=== PATIENT | female | born 1955 | race Caucasian/White ===

== ENCOUNTER 2020-04-01 08:26 | Day surgery (SDC) | payer BC ==
[2020-04-01] MEDS ORDERED: Midazolam 1 MG/ML 2 ML SDV IV ONE (08:27)
[2020-04-01] MEDS ORDERED: Lidocaine 2% 5 ML SDV INJECT ONE (08:27)
[2020-04-01] MEDS ORDERED: Propofol 200 MG/20 ML SDV IV ONE (08:27)
[2020-04-01] MEDS ORDERED: Sodium Chloride 0.9% 10 ML Syringe FLUSH PRN (08:30)
[2020-04-01] MEDS: Lactated Ringers 1,000 ML IV SCH (08:43)
--- NOTE | 2020-04-01 10:43 | PCM.OPNOTE ---
- General Post-Op/Procedure Note Date of Surgery/Procedure: 04/01/20 Operative Procedure(s): egd with bx. \ Findings: gastroduodenitis Pre Op Diagnosis: hx of epigastric abd pain. gastroduodenitis Post-Op Diagnosis: Same Anesthesia Technique: MAC Primary Surgeon: Ravinder Soto Anesthesia Provider: Frida Cantu Pathology: stomach and duodenum Complications: None Condition: Good Free Text/Narrative:: see dictation
[2020-04-01 11:21] VITALS: BP 116/70; PULSE 85
--- NOTE | 2020-04-02 14:21 | OR ---
DATE OF OPERATION: 04/01/2020 SURGEON: Ravinder Soto MD PROCEDURE PERFORMED: Esophagogastroduodenoscopy with cold forceps biopsy. PREOPERATIVE DIAGNOSIS: History of epigastric abdominal pain and gastroduodenitis. POSTOPERATIVE DIAGNOSIS: Gastroduodenitis. INDICATIONS FOR PROCEDURE: This is a 65-year-old white female who, in the past, has had gastroduodenitis, as well as an antral ulcer. These were successfully treated, and she has been on Prilosec since then. Last week, she developed some epigastric abdominal pain, which got progressively worse. She started some Carafate with no improvement, and she was offered and accepted an EGD today to delineate the severity, if any, of her above history. DESCRIPTION OF OPERATION: After an excellent IV sedation was administered, the bite block was inserted. The flexible endoscope was passed without difficulty down the patient's esophagus into the stomach. Stomach was insufflated. Scope passed through the pylorus to the second portion of the duodenum and slowly withdrawn. Following findings were noted. In the first portion of the duodenum, duodenitis was noted, biopsies were taken. Stomach in the area of the antrum, marked gastritis was noted, multiple biopsies were taken. The esophagus itself was unremarkable. GE junction measured approximately 40 cm. The stomach was deflated, scope was removed. The patient tolerated the procedure well, was taken to recovery in good condition. Results will be sent to her via letter. I am stopping her Prilosec, as obviously this is ineffective, and we will be putting her on some Protonix 40 mg one per day to take in the interim. /[id number] /MODL
== END 2020-04-01 11:13 | disposition home or self-care (01) ==
LOC: FB.SDS 08:26
PROVIDERS: ATTEND Surgery
DX: K29.50 Unspecified chronic gastritis without bleeding (principal); K29.90 Gastroduodenitis, unspecified, without bleeding; K25.9 Gastric ulcer, unspecified as acute or chronic, without hemorrhage or perforation; E03.9 Hypothyroidism, unspecified; J44.9 Chronic obstructive pulmonary disease, unspecified; Z87.891 Personal history of nicotine dependence
CPT/HCPCS: 00731-QZ; 88305; 88342; J2001; J2250; J2704; J7120; U0002